=== PATIENT | female | born 1970 | race Asian ===

== ENCOUNTER 2023-10-08 02:42 | Emergency (ER) | payer OTHER ==
[~2023-10-08] VITALS: Ht 170.2 cm; Wt 72.7 kg
[~2023-10-08 02:42] MED LIST: HYDR25TA PO; LISI20TA24 PO
[2023-10-08 02:44] VITALS: BP 151/78; PULSE 100; RESP 28; TEMP 98.1
[2023-10-08] MEDS: HYDROmorphone HCL 2 MG/ML SYRINGE IM ONE (04:16)
[2023-10-08] MEDS: SODIUM CHLORIDE 0.9% 1,000 ML IV ONE (04:16)
[2023-10-08] MEDS: HYDROmorphone HCL 2 MG/ML SYRINGE IVP ONE (04:56)
== END 2023-10-08 05:30 | disposition home or self-care (01) ==
LOC: EMS 02:43
DX: R10.84 Generalized abdominal pain (principal); I10 Essential (primary) hypertension; F10.90 Alcohol use, unspecified, uncomplicated; Z98.890 Other specified postprocedural states; Y90.9 Presence of alcohol in blood, level not specified
CPT/HCPCS: 99283; 96360; 74022; 96372; J1170; J7030